=== PATIENT | female | born 1965 | race Hispanic/Latino ===

== ENCOUNTER 2017-10-15 18:12 | Emergency (ER) | payer OTHER ==
[~2017-10-15] VITALS: Ht 149.9 cm; Wt 59.4 kg
[~2017-10-15 18:12] MED LIST: [UNRECOGNIZED DRUG - REMARK]; [UNRECOGNIZED DRUG - REMARK]
[2017-10-15] MEDS ORDERED: CLONIDINE HCL 0.2 MG TAB PO ONE (18:45)
[2017-10-15 20:07] VITALS: BP 166/80
== END 2017-10-15 19:50 | disposition home or self-care (01) ==
LOC: FSED 18:12
DX: I10 Essential (primary) hypertension (principal)
CPT/HCPCS: 99282

== ENCOUNTER → 2018-09-03 | Day surgery (SDC) | payer OTHER ==
[2018-08-26 12:27] LABS: BASOPHILS % 0.4 % (0.0-1.0); EOSINOPHILS # (AUTO) 0.1 (0.0-0.4); EOSINOPHILS % 1.3 % (0.0-6.0); HEMATOCRIT 40.6 % (34.2-44.1); HEMOGLOBIN 14.1 g/dL (12.0-16.0); LYMPHOCYTES # (AUTO) 1.9 (1.0-3.2); LYMPHOCYTES % 42.6 % (18.0-39.1); MEAN CORPUSCULAR HEMOGLOBIN 32.9 pg (28-32); MEAN CORPUSCULAR HGB CONC 34.7 g/dL (31-35); MEAN CORPUSCULAR VOLUME 94.6 fL (81-99); MONOCYTES # (AUTO) 0.3 (0.2-0.8); MONOCYTES % 6.2 % (4.4-11.3); NEUTROPHILS # (AUTO) 2.2 (2.1-6.9); NEUTROPHILS % 49.3 % (38.7-80.0); PLATELET COUNT 94 x10e3/uL (140-360); RED BLOOD COUNT 4.29 x10e6/uL (3.6-5.1); RED CELL DISTRIBUTION WIDTH 12.7 % (11.7-14.4)
[2018-08-26 12:36] LABS: INR 0.94; PROTHROMBIN TIME 13.1 seconds (11.9-14.5)
[2018-08-26 12:37] LABS: PARTIAL THROMBOPLASTIN TIME 32.6 seconds (23.8-35.5)
[2018-08-26 12:45] LABS: ALANINE AMINOTRANSFERASE 23 IU/L (0-55); ALBUMIN 4.1 g/dL (3.5-5.0); ALKALINE PHOSPHATASE 77 IU/L (40-150); ANION GAP 12.5 mmol/L (8-16); BLOOD UREA NITROGEN 15 mg/dL (7-26); BUN/CREATININE RATIO 21 (6-25); CALCIUM 9.7 mg/dL (8.4-10.2); CARBON DIOXIDE 28 mmol/L (22-29); CHLORIDE 104 mmol/L (98-107); CREATININE, SERUM 0.71 mg/dL (0.57-1.11); EST GLOMERULAR FILTRATION RATE > 60 ML/MIN (60-); GLUCOSE 101 mg/dL (74-118); POTASSIUM 4.5 mmol/L (3.5-5.1); SODIUM 140 mmol/L (136-145)
[~2018-09-03] MED LIST changes: +CARVEDILOL12.5 MG PO; +DIOVAN80 MG PO; +FENTANYL CITRATE/PF 100MCG/2 ML INJ ONE; +MIDAZOLAM HCL 2 MG/2 ML VIAL ONE
--- OUTSIDE RECORDS SUMMARY | 2018-09-03 06:17 | XMS REPORT | Continuity of Care Document ---
Author Author [employer] Address Unknown Phone Unavailable Care Team Providers Care Bulk Clerk Name Role Phone Hi-Midia Unavailable Unavailable Problems No Data Provided for This Section Medications Medication Details Route Status Patient Instructions Ordering Provider Order Date Source Bp Med?? Active [facility] Depression Med ?? Active [facility] Allergies, Adverse Reactions, Alerts No Known Medication Allergies Immunizations No Data Provided for This Section Results No Data Provided for This Section Pathology Reports No Data Provided for This Section Diagnostic Reports No Data Provided for This Section Consultation Notes No Data Provided for This Section Discharge Summaries No Data Provided for This Section History and Physicals No Data Provided for This Section Vital Signs No Data Provided for This Section Encounters Location Location Details Encounter Type Encounter Number Reason For Visit Attending Provider ADM Date DC Date Status Source Departed Emergency Room [id number] ELLA VAZQUEZ MD 10/15/2017 10/15/2017 [facility] Procedures No Data Provided for This Section Assessment and Plan No Data Provided for This Section Plan of Care Plan of Care Date Source Discharge Date 10/15/17 7:50pm Disposition HOME, SELF-CARE Condition at Discharge Stable Instructions/Education Provided Hypertension Forms Provided Work/School Excuse Prescriptions See Medication Section Referrals SHAWNEE HUBBARD MD Address: [address] [place] [id number] Additional Instructions/Education REST; TAKE MEDICATIONS PRESCRIBED; FOLLOW UP WITH YOUR PCP; 10/15/2017 [facility] Social History Social History Date Source Smoking Status Start Date Stop Date Never Smoker 10/15/2017 [facility] Family History No Data Provided for This Section Advance Directives Order Name Results Value Date Source Advance Directives Advance Directives Directive Response Recorded Date/Time Does the patient have an advance directive? No 09/28/12 3:38pm If yes, is advance directive on file with [facility]? No 09/28/12 3:38pm If not on file with [facility] will patient provide a copy? No 09/28/12 3:38pm Do you have a Directive to Physician? No 10/15/17 7:21pm Do you have a Medical Power of Change Number Operator? No 10/15/17 7:21pm Do you have an out of hospital Do Not Resuscitate Order? No 10/15/17 7:21pm Do you have any special needs we should be aware of? No 10/15/17 7:21pm Do you have a support person here with you today? No 10/15/17 7:21pm Did patient receive Notice of Privacy Practices? Yes 10/15/17 7:21pm Did patient receive patient rights and responsibilities? Yes 10/15/17 7:21pm 10/15/2017 [facility] Functional Status No Data Provided for This Section
[2018-09-03 10:00] VITALS: BP 124/94
== END | disposition home or self-care (01) ==
LOC: OR 05:59
PROVIDERS: ATTEND Internal Medicine Gastroenterology
DX: K29.50 Unspecified chronic gastritis without bleeding (principal); K31.7 Polyp of stomach and duodenum; B96.81 Helicobacter pylori [H. pylori] as the cause of diseases classified elsewhere; K31.89 Other diseases of stomach and duodenum; K21.9 Gastro-esophageal reflux disease without esophagitis; K44.9 Diaphragmatic hernia without obstruction or gangrene; K74.60 Unspecified cirrhosis of liver; I10 Essential (primary) hypertension; Z01.810 Encounter for preprocedural cardiovascular examination; Z01.812 Encounter for preprocedural laboratory examination; B19.20 Unspecified viral hepatitis C without hepatic coma
CPT/HCPCS: 36415; 43239; 80053; 85025; 85610; 85730; 93005; J2250; J3010